=== PATIENT | male | born 1965 | race Caucasian/White ===

== ENCOUNTER 2016-10-31 10:09 | Emergency (ER) | payer SELFPAY ==
--- NOTE | 2016-10-31 10:59 | EDM.PDOC ---
ED HPI GENERAL MEDICAL PROBLEM - General Chief Complaint: Upper Extremity Injury/Pain Stated Complaint: RIGHT ARM PAIN Time Seen by Provider: 10/31/16 10:50 Source of Information: Reports: Patient History Limitations: Reports: No Limitations - History of Present Illness INITIAL COMMENTS - FREE TEXT/NARRATIVE: HISTORY AND PHYSICAL: History of present illness: [Patient comes to the emergency room complaining of right elbow pain. Has had stiffness to his right elbow for the past week. Over the past 48 hours his arm has become more painful and elbow has become warm and swollen. He has a history of gout though typically in his great toes. He reports that he's had episodes of this in the past and it always improves with steroids prescribed by his PCP in [place]. He denies fever and chills. He's had no chest pain shortness of breath or difficulty breathing. No abdominal pain. He's not been drinking more alcohol than usual and has had no change in his diet. He typically avoids red meats due to his history of gout. Patient's PCP is in [place]. ] Review of systems: As per history of present illness and below otherwise all systems reviewed and negative. Past medical history: As per history of present illness and as reviewed below otherwise noncontributory. Surgical history: As per history of present illness and as reviewed below otherwise noncontributory. Social history: No reported history of drug or alcohol abuse. Family history: As per history of present illness and as reviewed below otherwise noncontributory. Physical exam: HEENT: Atraumatic, normocephalic. Lungs: Clear to auscultation, breath sounds equal bilaterally. Heart: S1S2, regular rate and rhythm. Abdomen: Soft, nondistended, nontender. Pelvis: Stable nontender. Genitourinary: Deferred. Rectal: Deferred. Extremities: R elbow has increased warmth and swelling, particularly over the radial aspect. Mild tenderness with palpation. Neurovascular unremarkable. Neuro: Awake, alert, oriented. Motor and sensory unremarkable throughout. Exam nonfocal. Diagnostics: [CBC, CMP, uric acid, right elbow x-ray] Impression: [Right elbow pain] Plan: [Discussed with patient that his uric acid level is elevated which is likely the cause of his elbow pain. He is given a prescription for a tapering dose of prednisone. And a prescription for indomethacin to use for his next flareup until he can be seen by his PCP. He is in agreement with today's plan all his questions are answered and concerns were addressed.] Definitive disposition and diagnosis as appropriate pending reevaluation and review of above. right elbow Pain Score (Numeric/FACES): 8 - Related Data Allergies Allergy/AdvReac Type Severity Reaction Status Date / Time No Known Allergies Allergy Verified 10/31/16 10:14 Home Meds: Home Meds Indomethacin [Indocin] 25 mg PO DAILY PRN 10/31/16 [History] Metoprolol Succinate [Toprol XL] 25 mg PO DAILY 10/31/16 [History] metFORMIN [Glucophage XR] 500 mg PO BID 10/31/16 [History] Past Medical History Cardiovascular History: Reports: Hypertension Musculoskeletal History: Reports: Gout Endocrine/Metabolic History: Reports: Diabetes, Type II Oncologic (Cancer) History: Reports: Leukemia - Past Surgical History GI Surgical History: Reports: Cholecystectomy Musculoskeletal Surgical History: Reports: Knee Replacement Other Musculoskeletal Surgeries/Procedures:: elbow surgery Social & Family History - Family History Family Medical History: Noncontributory - Tobacco Use Smoking Status *Q: Current Every Day Smoker Years of Tobacco use: 15 Packs/Tins Daily: 0.5 - Caffeine Use Caffeine Use: Reports: Coffee - Alcohol Use Days Per Week of Alcohol Use: 2 Number of Drinks Per Day: 6 Total Drinks Per Week: 12 - Recreational Drug Use Recreational Drug Use: No Review of Systems - Review of Systems Review Of Systems: ROS reveals no pertinent complaints other than HPI. ED EXAM, GENERAL - Physical Exam Exam: See Below Course - Vital Signs Last Recorded V/S: Last Vital Signs Temp 97.6 F 10/31/16 10:15 Pulse 86 10/31/16 12:27 Resp 16 10/31/16 12:27 BP 139/85 10/31/16 12:27 Pulse Ox 94 L 10/31/16 12:27 - Orders/Labs/Meds Labs: Laboratory Tests 10/31/16 10/31/16 Range/Units 11:17 11:17 WBC 7.56 (4.0-11.0) K/uL RBC 4.84 (4.50-5.90) M/uL Hgb 14.2 (13.0-17.0) g/dL Hct 42.1 (38.0-50.0) % MCV 87.0 (80.0-98.0) fL MCH 29.3 (27.0-32.0) pg MCHC 33.7 (31.0-37.0) g/dL RDW Std Deviation 42.7 (28.0-62.0) fl RDW Coeff of Phyllis 14 (11.0-15.0) % Plt Count 264 (150-400) K/uL MPV 9.00 (7.40-12.00) fL Neut % (Auto) 74.2 (48.0-80.0) % Lymph % (Auto) 13.8 L (16.0-40.0) % [place] % (Auto) 7.5 (0.0-15.0) % Eos % (Auto) 3.8 (0.0-7.0) % Baso % (Auto) 0.7 (0.0-1.5) % Neut # (Auto) 5.6 (1.4-5.7) K/uL Lymph # (Auto) 1.0 (0.6-2.4) K/uL [place] # (Auto) 0.6 (0.0-0.8) K/uL Eos # (Auto) 0.3 (0.0-0.7) K/uL Baso # (Auto) 0.1 (0.0-0.1) K/uL Nucleated RBC % 0.0 /100WBC Nucleated RBCs # 0 K/uL Sodium 135 L (136-146) mmol/L Potassium 4.3 (3.5-5.1) mmol/L Chloride 98 (98-110) mmol/L Carbon Dioxide 26 (21-31) mmol/L BUN 11 (6.0-23.0) mg/dL Creatinine 0.9 (0.6-1.5) mg/dL Est Cr Clr Drug Dosing 108.98 mL/min Estimated GFR (MDRD) > 60.0 ml/min Glucose 170 H (60-110) mg/dL Uric Acid 8.9 H (2.1-7.4) mg/dL Calcium 9.4 (8.8-10.8) mg/dL Total Bilirubin 1.5 (0.1-1.5) mg/dL AST 18 (5-40) IU/L ALT 22 (8-54) IU/L Alkaline Phosphatase 122 (40-150) Total Protein 7.2 (6.0-8.0) g/dL Albumin 4.3 (3.5-5.0) g/dL Globulin 2.9 (2.0-3.5) g/dL Albumin/Globulin Ratio 1.5 (1.3-2.8) Departure - Departure Time of Disposition: 12:15 Disposition: Home, Self-Care 01 Condition: Good Clinical Impression: Gout Qualifiers: Gout site: elbow Gout etiology: unspecified cause Chronicity: acute Laterality : right Qualified Code(s): M10.9 - Gout, unspecified - Discharge Information Instructions: Gout, [id number] Referrals: PCP,None [Primary Care Provider] - Forms: ED Department Discharge Additional Instructions: The following information is given to patients seen in the emergency department who are being discharged to home. This information is to outline your options for follow-up care. We provide all patients seen in our emergency department with a follow-up referral. The need for follow-up, as well as the timing and circumstances, are variable depending upon the specifics of your emergency department visit. If you don't have a primary care physician on staff, we will provide you with a referral. We always advise you to contact your personal physician following an emergency department visit to inform them of the circumstance of the visit and for follow-up with them and/or the need for any referrals to a consulting specialist. The emergency department will also refer you to a specialist when appropriate. This referral assures that you have the opportunity for follow-up care with a specialist. All of these measure are taken in an effort to provide you with optimal care, which includes your follow-up. Under all circumstances we always encourage you to contact your private physician who remains a resource for coordinating your care. When calling for follow-up care, please make the office aware that this follow-up is from your recent emergency room visit. If for any reason you are refused follow-up, please contact the [facility] emergency department at and asked to speak to the emergency department charge nurse. [facility] [address] [place] [id number] Establish care with a local primary care provider if you are going to be in the local area. Follow-up with your PCP in the next 48-72 hours. Take prednisone with this episode. Refill prescription for indomethacin to have it on hand for next time. Return to ER as needed as discussed.
--- NOTE | 2016-10-31 11:19 | CR ---
EXAMINATION: Right elbow HISTORY: Pain, warmth COMPARISON: None TECHNIQUE: 2 views FINDINGS: There is no acute osseous abnormality, dislocation, or fracture. Bone mineralization appea rs normal. Moderate osteophyte and osteoarthritic changes are noted within the right elbow. There is a moderate triceps insertional enthesophyte. There is likely a small to moderate joint effusion. IMPRESSION: 1. Joint effusion and osteoarthritic changes noted without acute osseous abnormality.
[2016-10-31 11:51] LABS: CHLORIDE,CL 98 mmol/L (98-110); SODIUM,NA 135 mmol/L (136-146)
[2016-10-31 14:13] VITALS: BP 139/85
== END 2016-10-31 12:27 | disposition home or self-care (01) ==
LOC: MW.ED 10:09
DX: M10.9 Gout, unspecified (principal); I10 Essential (primary) hypertension; F17.210 Nicotine dependence, cigarettes, uncomplicated; E11.9 Type 2 diabetes mellitus without complications; Z79.84 Long term (current) use of oral hypoglycemic drugs; Z79.899 Other long term (current) drug therapy; Z90.49 Acquired absence of other specified parts of digestive tract; Z96.659 Presence of unspecified artificial knee joint
CPT/HCPCS: 36415; 73070-26-RT; 73070-RT; 80053; 84550; 85025; 99283

== ENCOUNTER 2016-11-21 12:17 | Observation (INO) | payer SELFPAY ==
--- NOTE | 2016-11-21 12:27 | EDM.PDOC ---
ED HPI GENERAL MEDICAL PROBLEM - General Stated Complaint: CHEST PAIN Time Seen by Provider: 11/21/16 12:35 Source of Information: Reports: Patient History Limitations: Reports: No Limitations - History of Present Illness INITIAL COMMENTS - FREE TEXT/NARRATIVE: History of present illness: []Patient's been having right-sided burning chest pain since 9:00 this morning. It started while he was at work he notes that he was in the emergency room about 2 weeks ago for elbow pain that was thought to be gout. Been taking ibuprofen daily for his elbow pain and he started coughing up blood. Review of systems: As per history of present illness and below otherwise all systems reviewed and negative. Past medical history: As per history of present illness and as reviewed below otherwise noncontributory. Surgical history: As per history of present illness and as reviewed below otherwise noncontributory. Social history: No reported history of drug or alcohol abuse. Family history: As per history of present illness and as reviewed below otherwise noncontributory. Physical exam: General: Well developed, well nourished in NAD HEENT: Atraumatic, normocephalic, pupils reactive, negative for conjunctival pallor or scleral icterus, mucous membranes moist, throat clear, neck supple, nontender, trachea midline. Lungs: Clear to auscultation, breath sounds equal bilaterally, chest nontender. Heart: S1S2, regular, negative for clicks, rubs, or JVD. Abdomen: Soft, nondistended, nontender. Negative for masses or hepatosplenomegaly. Negative for costovertebral tenderness. Pelvis: Stable nontender. Genitourinary: Deferred. Rectal: Deferred. Extremities: Atraumatic, negative for cords or calf pain. Neurovascular unremarkable. Neuro: Awake, alert, oriented. Cranial nerves II through XII unremarkable. Cerebellum unremarkable. Motor and sensory unremarkable throughout. Exam nonfocal. Diagnostics: []Labs and EKG x-rays were done which were negative. First troponin was 0.00. A second troponin was ordered after consultation with the hospitalist. Results came back normal at 0.10. Because this technically was an increase in troponin patient was admitted for observation for a third troponin. Therapeutics: []A dose of Protonix and nitroglycerin was given which alleviated his symptoms Impression: []Chest pain Plan: []Patient is admitted for observation chest pain is alleviated while in the ED Definitive disposition and diagnosis as appropriate pending reevaluation and review of above. chest Pain Score (Numeric/FACES): 7 Right Arm Pain Score (Numeric/FACES): 2 Right Elbow Pain Score (Numeric/FACES): 6 - Related Data Allergies Allergy/AdvReac Type Severity Reaction Status Date / Time No Known Allergies Allergy Verified 11/21/16 12:22 Home Meds: Home Meds Metoprolol Succinate [Toprol XL] 25 mg PO DAILY 10/31/16 [History] metFORMIN [Glucophage XR] 500 mg PO BID 10/31/16 [History] Past Medical History Cardiovascular History: Reports: Hypertension Musculoskeletal History: Reports: Gout Endocrine/Metabolic History: Reports: Diabetes, Type II Oncologic (Cancer) History: Reports: Leukemia - Past Surgical History GI Surgical History: Reports: Cholecystectomy Musculoskeletal Surgical History: Reports: Knee Replacement Other Musculoskeletal Surgeries/Procedures:: elbow surgery Social & Family History - Family History Family Medical History: Noncontributory - Tobacco Use Smoking Status *Q: Current Every Day Smoker Years of Tobacco use: 15 Packs/Tins Daily: 0.5 - Caffeine Use Caffeine Use: Reports: Coffee - Alcohol Use Days Per Week of Alcohol Use: 2 Number of Drinks Per Day: 6 Total Drinks Per Week: 12 - Recreational Drug Use Recreational Drug Use: No ED ROS GENERAL - Review of Systems Review Of Systems: See Below (See history of present illness) ED EXAM, GENERAL - Physical Exam Exam: See Below (See history of present illness) Course - Vital Signs Last Recorded V/S: Last Vital Signs Temp 35.8 C 11/22/16 04:00 Pulse 55 L 11/22/16 04:00 Resp 18 11/22/16 04:00 BP 138/75 11/22/16 04:00 Pulse Ox 98 11/22/16 04:00 - Orders/Labs/Meds Orders: Active Orders 24 hr Category Date Time Status Cardiac Monitoring [RC] . DIRECTED Care 11/21/16 12:27 Inactive EKG Documentation Completion [RC] STAT Care 11/21/16 12:27 Active Saline Lock Insert [OM.PC] Stat Oth 11/21/16 12:27 Ordered Medication Orders Acetaminophen (Tylenol) 650 mg PO Q4H PRN PRN Reason: Pain Last Admin: 11/21/16 18:16 Dose: 650 mg Aspirin (Aspirin) 81 mg PO DAILY [facility] Bisacodyl (Dulcolax) 5 mg PO DAILY PRN PRN Reason: Constipation Hydrochlorothiazide (Hydrochlorothiazide) 25 mg PO DAILY [facility] Lisinopril (Prinivil) 20 mg PO DAILY [facility] Metformin HCl (Glucophage Xr) 500 mg PO BID [facility] Last Admin: 11/21/16 20:07 Dose: 500 mg Metoprolol Succinate (Toprol Xl) 25 mg PO DAILY [facility] Morphine Sulfate (Morphine) 4 mg IVPUSH Q2H PRN PRN Reason: Pain Last Admin: 11/22/16 06:30 Dose: 4 mg Admin: 11/22/16 04:21 Dose: 4 mg Admin: 11/22/16 00:04 Dose: 4 mg Ondansetron HCl (Zofran Odt) 4 mg PO Q4H PRN PRN Reason: nausea, able to take PO Pantoprazole Sodium (Protonix) 40 mg PO BIDAC [facility] Last Admin: 11/22/16 06:30 Dose: 40 mg Admin: 11/21/16 20:07 Dose: 40 mg Sucralfate (Carafate) 1 gm PO Q6H [facility] Last Admin: 11/22/16 02:11 Dose: 1 gm Admin: 11/21/16 20:07 Dose: 1 gm Labs: Laboratory Tests 11/21/16 11/21/16 11/21/16 Range/Units 12:41 12:41 12:41 WBC 6.11 (4.0-11.0) K/uL RBC 4.54 (4.50-5.90) M/uL Hgb 13.6 (13.0-17.0) g/dL Hct 39.2 (38.0-50.0) % MCV 86.3 (80.0-98.0) fL MCH 30.0 (27.0-32.0) pg MCHC 34.7 (31.0-37.0) g/dL RDW Std Deviation 41.1 (28.0-62.0) fl RDW Coeff of Phyllis 13 (11.0-15.0) % Plt Count 256 (150-400) K/uL MPV 9.40 (7.40-12.00) fL Neut % (Auto) 73.1 (48.0-80.0) % Lymph % (Auto) 16.5 (16.0-40.0) % [place] % (Auto) 7.0 (0.0-15.0) % Eos % (Auto) 2.6 (0.0-7.0) % Baso % (Auto) 0.8 (0.0-1.5) % Neut # (Auto) 4.5 (1.4-5.7) K/uL Lymph # (Auto) 1.0 (0.6-2.4) K/uL [place] # (Auto) 0.4 (0.0-0.8) K/uL Eos # (Auto) 0.2 (0.0-0.7) K/uL Baso # (Auto) 0.1 (0.0-0.1) K/uL Nucleated RBC % 0.0 /100WBC Nucleated RBCs # 0 K/uL INR 0.99 (0.86-1.11) APTT 27.0 (18.6-31.3) SEC Sodium 137 (136-146) mmol/L Potassium 4.0 (3.5-5.1) mmol/L Chloride 101 (98-110) mmol/L Carbon Dioxide 26 (21-31) mmol/L BUN 11 (6.0-23.0) mg/dL Creatinine 0.9 (0.6-1.5) mg/dL Est Cr Clr Drug Dosing 109.13 mL/min Estimated GFR (MDRD) > 60.0 ml/min Glucose 271 H (60-110) mg/dL Calcium 9.3 (8.8-10.8) mg/dL Total Bilirubin 1.4 (0.1-1.5) mg/dL AST 19 (5-40) IU/L ALT 28 (8-54) IU/L Alkaline Phosphatase 117 (40-150) Troponin I (0.0-0.29) NG/ML Total Protein 6.8 (6.0-8.0) g/dL Albumin 4.1 (3.5-5.0) g/dL Globulin 2.7 (2.0-3.5) g/dL Albumin/Globulin Ratio 1.5 (1.3-2.8) Blood Type Antibody Screen 11/21/16 11/21/16 11/21/16 Range/Units 12:41 12:41 15:53 WBC (4.0-11.0) K/uL RBC (4.50-5.90) M/uL Hgb (13.0-17.0) g/dL Hct (38.0-50.0) % MCV (80.0-98.0) fL MCH (27.0-32.0) pg MCHC (31.0-37.0) g/dL RDW Std Deviation (28.0-62.0) fl RDW Coeff of Phyllis (11.0-15.0) % Plt Count (150-400) K/uL MPV (7.40-12.00) fL Neut % (Auto) (48.0-80.0) % Lymph % (Auto) (16.0-40.0) % [place] % (Auto) (0.0-15.0) % Eos % (Auto) (0.0-7.0) % Baso % (Auto) (0.0-1.5) % Neut # (Auto) (1.4-5.7) K/uL Lymph # (Auto) (0.6-2.4) K/uL [place] # (Auto) (0.0-0.8) K/uL Eos # (Auto) (0.0-0.7) K/uL Baso # (Auto) (0.0-0.1) K/uL Nucleated RBC % /100WBC Nucleated RBCs # K/uL INR (0.86-1.11) APTT (18.6-31.3) SEC Sodium (136-146) mmol/L Potassium (3.5-5.1) mmol/L Chloride (98-110) mmol/L Carbon Dioxide (21-31) mmol/L BUN (6.0-23.0) mg/dL Creatinine (0.6-1.5) mg/dL Est Cr Clr Drug Dosing mL/min Estimated GFR (MDRD) ml/min Glucose (60-110) mg/dL Calcium (8.8-10.8) mg/dL Total Bilirubin (0.1-1.5) mg/dL AST (5-40) IU/L ALT (8-54) IU/L Alkaline Phosphatase (40-150) Troponin I < 0.10 < 0.10 (0.0-0.29) NG/ML Total Protein (6.0-8.0) g/dL Albumin (3.5-5.0) g/dL Globulin (2.0-3.5) g/dL Albumin/Globulin Ratio (1.3-2.8) Blood Type O POSITIVE Antibody Screen NEGATIVE Meds: Medications Generic Name Dose Route Start Last Admin Trade Name Freq PRN Reason Stop Dose Admin Acetaminophen 650 mg 11/21/16 17:31 11/21/16 18:16 Tylenol PO 650 mg Q4H PRN Administration Pain Aspirin 81 mg 11/22/16 09:00 Aspirin PO DAILY [facility] Bisacodyl 5 mg 11/21/16 19:21 Dulcolax PO DAILY PRN Constipation Hydrochlorothiazide 25 mg 11/22/16 09:00 Hydrochlorothiazide PO DAILY [facility] Lisinopril 20 mg 11/22/16 09:00 Prinivil PO DAILY [facility] Metformin HCl 500 mg 11/21/16 21:00 11/21/16 20:07 Glucophage Xr PO 500 mg BID KRISTA Administration Metoprolol Succinate 25 mg 11/22/16 09:00 Toprol Xl PO DAILY [facility] Morphine Sulfate 4 mg 11/21/16 23:41 11/22/16 06:30 Morphine IVPUSH 4 mg Q2H PRN Administration Pain Ondansetron HCl 4 mg 11/21/16 19:21 Zofran Odt PO Q4H PRN nausea, able to take PO Pantoprazole Sodium 40 mg 11/21/16 19:30 11/22/16 06:30 Protonix PO 40 mg BIDAC KRISTA Administration Sucralfate 1 gm 11/21/16 20:00 11/22/16 02:11 Carafate PO 1 gm Q6H KRISTA Administration Discontinued Medications Generic Name Dose Route Start Last Admin Trade Name Freq PRN Reason Stop Dose Admin Aspirin 81 mg 11/22/16 08:00 Aspirin PO 11/22/16 09:00 DAILY ONE Hydrochlorothiazide 25 mg 11/21/16 19:18 11/21/16 20:07 Hydrochlorothiazide PO 11/21/16 19:19 25 mg ONETIME ONE Administration Lisinopril 20 mg 11/21/16 19:18 11/21/16 20:07 Prinivil PO 11/21/16 19:19 20 mg ONETIME ONE Administration Nitroglycerin 0.4 mg 11/21/16 12:53 11/21/16 13:12 Nitrostat SL 11/21/16 13:04 0.4 mg Q5M PRN Administration Chest Pain Pantoprazole Sodium 80 mg 11/21/16 12:53 11/21/16 13:01 Protonix Iv IVPUSH 11/21/16 12:54 80 mg .BOLUS ONE Administration Departure - Departure Time of Disposition: 16:25 Disposition: Refer to Observation Condition: Good Clinical Impression: Acute coronary syndrome - My Orders Last 24 Hours: My Active Orders 11/21/16 12:27 Cardiac Monitoring [RC] . DIRECTED EKG Documentation Completion [RC] STAT Saline Lock Insert [OM.PC] Stat - Assessment/Plan Last 24 Hours: My Active Orders 11/21/16 12:27 Cardiac Monitoring [RC] . DIRECTED EKG Documentation Completion [RC] STAT Saline Lock Insert [OM.PC] Stat
[2016-11-21] MEDS ORDERED: Pantoprazole 40 MG Vial IVPUSH ONE (12:53)
[2016-11-21] MEDS: Nitroglycerin 0.4 MG Tab.SL SL PRN ×3 (13:01→13:12)
--- NOTE | 2016-11-21 13:07 | CR ---
EXAMINATION: Portable chest radiograph. HISTORY: Shortness of breath. FINDINGS: The trachea is midline. The cardiomediastinal silhouette is within normal limits. No pulmonary infil trates, effusions or pneumothorax. Advanced osteoarthritic changes noted within the right shoulder. IMPRESSION: No acute cardiopulmonary process.
[2016-11-21 13:16] LABS: CHLORIDE,CL 101 mmol/L (98-110); SODIUM,NA 137 mmol/L (136-146)
[2016-11-21] MEDS ORDERED: Acetaminophen 325 MG Tab PO PRN (17:31)
--- NOTE | 2016-11-21 19:03 | PCM.HP ---
H&P History of Present Illness - General Date of Service: 11/21/16 Source of Information: Patient, Family, Provider - History of Present Illness Initial Comments - Free Text/Narative: He had a several hour history this am of right sided chest pressure with shortness of breath. He was seen in the ED where two troponins were in the normal range but the second level was increased compared to the first level. This am he vomited and had some blood in the vomit. He no longer feels nauseated. He states that his blood pressure was elevated when he was having chest pain. He drinks about 12 beers on the weekend. In the ED his blood pressure was elevated to greater than 180/115 mm Hg. chest Pain Score (Numeric/FACES): 7 - Related Data Allergies/Adverse Reactions: Allergies Allergy/AdvReac Type Severity Reaction Status Date / Time No Known Allergies Allergy Verified 11/21/16 12:22 Home Medications: Home Meds Metoprolol Succinate [Toprol XL] 25 mg PO DAILY 10/31/16 [History] metFORMIN [Glucophage XR] 500 mg PO BID 10/31/16 [History] Past Medical History Cardiovascular History: Reports: Hypertension. Denies: Afib, CAD, [place] Respiratory History: Reports: COPD Gastrointestinal History: Denies: Cirrhosis Genitourinary History: Denies: Chronic Renal Insuffiency Musculoskeletal History: Reports: Gout Neurological History: Denies: CVA Endocrine/Metabolic History: Reports: Diabetes, Type II Immunologic History: Denies: HIV Oncologic (Cancer) History: Reports: Leukemia (he states that his leukemia is in remission) - Infectious Disease History Infectious Disease History: Reports: Chicken Pox - Past Surgical History GI Surgical History: Reports: Cholecystectomy Musculoskeletal Surgical History: Reports: Knee Replacement Other Musculoskeletal Surgeries/Procedures:: elbow surgery Social & Family History - Family History Other Cardiac Family History: his brother suffered an IL while in his 40's - Tobacco Use Smoking Status *Q: Current Every Day Smoker Years of Tobacco use: 15 Packs/Tins Daily: 0.5 Used Tobacco, but Quit: Yes Month Tobacco Last Used: November - Caffeine Use Caffeine Use: Reports: Coffee - Alcohol Use Days Per Week of Alcohol Use: 2 Number of Drinks Per Day: 6 Total Drinks Per Week: 12 Date of Last Drink: 11/18/16 Time of Last Drink: 20:40 - Recreational Drug Use Recreational Drug Use: No H&P Review of Systems - Review of Systems: Review Of Systems: See Below General: Denies: Fever, Chills HEENT: Denies: Sore Throat Pulmonary: Reports: Shortness of Breath, Cough (chronic "smoker's " cough in the am's ) Cardiovascular: Reports: Chest Pain (right sided; now resolved) Gastrointestinal: Reports: Abdominal Pain (some mid upper abdominal pain. ). Denies: Hematemesis, Hematochezia Genitourinary: Denies: Dysuria, Hematuria Skin: Denies: Cyanosis Psychiatric: Denies: Confusion Exam - Exam Exam: See Below - Vital Signs Vital Signs: Last Vital Signs Temp 98.9 F 11/21/16 16:34 Pulse 66 11/21/16 16:34 Resp 18 11/21/16 16:34 BP 141/86 H 11/21/16 16:34 Pulse Ox 95 11/21/16 16:34 Weight: 124.511 kg - Exam General: Alert, Oriented, Cooperative HEENT: EOMI, Mucosa Moist & [place] Neck: Supple, Trachea Midline Lungs: Other (faint basilar wheezing) Cardiovascular: Regular Rate, Regular Rhythm Abdomen: Soft, Tenderness (mild epigastric tenderness). No: Distention Rectal (Males) Exam: Deferred Extremities: No: Edema Neurological: Cranial Nerves Intact, Normal Speech Neuro Extensive - Mental Status: Normal Mood/Affect, Normal Cognition Neuro Extensive - Motor, Sensory, Reflexes: CN II-XII Intact Psychiatric: No: Agitated, Hallucinations - Patient Data Lab Results Last 24 hrs: Laboratory Results - last 24 hr 11/21/16 Range/Units 18:21 POC Glucose 133 H (60-110) mg/dL Result Diagrams: 11/21/16 12:41 11/21/16 12:41 Matthew Results Last 24 hrs: CXR: WNL EKG: NSR *Q Meaningful Use (ADM) - VTE *Q VTE Criteria *Q: - Stroke *Q Stroke Criteria *Q: - AMI *Q AMI Criteria *Q: - Problem List (1) Chest pain SNOMED Code(s): 60415684 ICD Code: R07.9 - CHEST PAIN, UNSPECIFIED Status: Acute Current Visit: Yes (2) Hematemesis SNOMED Code(s): 9867872 ICD Code: K92.0 - HEMATEMESIS Status: Acute Current Visit: Yes (3) Hypertension SNOMED Code(s): 92786123 ICD Code: I10 - ESSENTIAL (PRIMARY) HYPERTENSION Status: Acute Current Visit: Yes (4) Epigastric abdominal pain SNOMED Code(s): 21355843 ICD Code: R10.13 - EPIGASTRIC PAIN Status: Acute Current Visit: Yes (5) Diabetes mellitus, type II SNOMED Code(s): 55611769 ICD Code: E11.9 - TYPE 2 DIABETES MELLITUS WITHOUT COMPLICATIONS Status: Acute Current Visit: Yes Problem List Initiated/Reviewed/Updated: Yes Orders Last 24hrs: Active Orders 24 hr Category Date Time Status Telemetry Monitoring [Cardiac Monitoring] [RC] . Care 11/21/16 17:32 Active DIRECTED [place] [employer] Diet [DIET] Diet 11/21/16 Dinner Active TROPONIN I [CHEM] Stat Lab 11/21/16 18:45 Received Acetaminophen [Tylenol] Med 11/21/16 17:31 Active 650 mg PO Q4H PRN Medication Orders Acetaminophen (Tylenol) 650 mg PO Q4H PRN PRN Reason: Pain Last Admin: 11/21/16 18:16 Dose: 650 mg Assessment/Plan Comment:: treat HTN check lipids in am arrange outpatient cardiac stress test anticipate discharge tomorrow
[2016-11-21] MEDS ORDERED: Hydrochlorothiazide 25 MG Tab PO ONE (19:18)
[2016-11-21] MEDS ORDERED: Lisinopril 10 MG Tab PO ONE (19:18)
[2016-11-21] MEDS ORDERED: Bisacodyl 5 MG Tab PO PRN (19:21)
[2016-11-21] MEDS ORDERED: Ondansetron 4 MG Tab.DIS PO PRN (19:21)
[2016-11-21] MEDS: Sucralfate Suspension 1 GM/10 ML Cup PO SCH (20:07)
[2016-11-21] MEDS: metFORMIN 500 MG Tab.ER PO SCH (20:07)
[2016-11-21] MEDS: Pantoprazole 40 MG Tab.CR PO SCH (20:07)
[2016-11-22] MEDS: Morphine 4 MG/ML Syringe IVPUSH PRN ×5 (00:04→12:49)
[2016-11-22] MEDS: Sucralfate Suspension 1 GM/10 ML Cup PO SCH ×3 (02:11→14:00)
[2016-11-22] MEDS: Pantoprazole 40 MG Tab.CR PO SCH (06:30)
[2016-11-22] MEDS ORDERED: Aspirin 81 MG Tab.Chew PO ONE (08:00)
[2016-11-22] MEDS ORDERED: Lisinopril 10 MG Tab PO SCH (09:00)
[2016-11-22] MEDS ORDERED: Aspirin 81 MG Tab.Chew PO SCH (09:00)
[2016-11-22] MEDS ORDERED: Metoprolol Succinate 25 MG Tab.ER PO SCH (09:00)
[2016-11-22] MEDS ORDERED: Hydrochlorothiazide 25 MG Tab PO SCH (09:00)
[2016-11-22] MEDS: metFORMIN 500 MG Tab.ER PO SCH (09:10)
[2016-11-22 11:50] VITALS: BP 133/76
[2016-11-22] MEDS ORDERED: Colchicine 0.6 MG Tab PO ONE (12:27)
--- NOTE | 2016-11-22 13:16 | PCM.DCSUM1 ---
Discharge Summary - Hospital Course Brief History: he was admitted for right sided chest pain. He was also noted to have severe hypertension of about 180/115 mm Hg. - Discharge Data Discharge Date: 11/22/16 Discharge Disposition: Home, Self-Care 01 Condition: Fair - Discharge Diagnosis/Problem(s) (1) Chest pain SNOMED Code(s): 47932661 ICD Code: R07.9 - CHEST PAIN, UNSPECIFIED Status: Acute Current Visit: Yes (2) Hematemesis SNOMED Code(s): 0270816 ICD Code: K92.0 - HEMATEMESIS Status: Acute Current Visit: Yes (3) Hypertension SNOMED Code(s): 18871040 ICD Code: I10 - ESSENTIAL (PRIMARY) HYPERTENSION Status: Acute Current Visit: Yes (4) Epigastric abdominal pain SNOMED Code(s): 35906577 ICD Code: R10.13 - EPIGASTRIC PAIN Status: Acute Current Visit: Yes (5) Diabetes mellitus, type II SNOMED Code(s): 73859669 ICD Code: E11.9 - TYPE 2 DIABETES MELLITUS WITHOUT COMPLICATIONS Status: Acute Current Visit: Yes - Patient Summary/Data Hospital Course: He was treated with lisinopril and HCTZ. his blood pressure normalized and he feels much better before discharge. Serial troponins were normal He reported that he sometimes drinks about 12 beers on the weekend. his triglyceride level was 400 mg/dl He reported and episode of hematemesis after using indocin at home for gout. He had slight epigastric tenderness that resolved after treating with protonix and carafate. He had swelling and pain at the right elbow thought to be a recurrent of his gout. Diagnosis: upper GI bleeding; likely secondary to gastritis elevated triglycerides DM II chest pain resolved acute gouty arthritis of the right [place] HTN improved. Plan: follow up with local primary care provider/I would recommend cardiac stress testing as an outpatient. Asa 81 mg daily I advised stopping alcohol as this might help his gout and hypertriglyceridemia ; he states that he can stop drinking alcohol colchicine 0.6 mg tid prn gout #10 with 6 refills protonix 40 mg daily x one month HCTZ 25 mg daily Lisinopril 20 mg daily Jon Khan MD - Discharge Plan Prescriptions/Med Rec: Aspirin 81 mg PO DAILY #100 tab.chew Colchicine 0.6 mg PO TID PRN #10 capsule PRN Reason: Other Hydrochlorothiazide 25 mg PO DAILY #30 tablet Lisinopril [Prinivil] 20 mg PO DAILY #30 tablet Pantoprazole [ProTONIX] 40 mg PO DAILY #30 tab.cr Home Medications: Home Meds metFORMIN [Glucophage XR] 1,000 mg PO BIDMEALS 10/31/16 [History] Albuterol [Proair HFA] 2 inh IH QID PRN 11/22/16 [History] Aspirin 81 mg PO DAILY #100 tab.chew 11/22/16 [Rx] Colchicine 0.6 mg PO TID PRN #10 capsule 11/22/16 [Rx] Hydrochlorothiazide 25 mg PO DAILY #30 tablet 11/22/16 [Rx] Lisinopril [Prinivil] 20 mg PO DAILY #30 tablet 11/22/16 [Rx] Pantoprazole [ProTONIX] 40 mg PO DAILY #30 tab.cr 11/22/16 [Rx] Patient Handouts: Chest Wall Pain, [id number] Referrals: PCP,None [Primary Care Provider] - - Patient Data Vitals - Most Recent: Last Vital Signs Temp 96.6 F 11/22/16 11:49 Pulse 61 11/22/16 11:49 Resp 20 11/22/16 11:49 BP 133/76 11/22/16 11:49 Pulse Ox 94 L 11/22/16 11:49 Weight - Most Recent: 124.511 kg I&O - Last 24 hours: Intake & Output 11/21/16 11/22/16 11/22/16 22:59 06:59 14:59 Intake Total 550 Balance 550 Lab Results - Last 24 hrs: Laboratory Results - last 24 hr 11/21/16 11/21/16 11/22/16 Range/Units 18:21 18:45 04:45 WBC (4.0-11.0) K/uL RBC (4.50-5.90) M/uL Hgb (13.0-17.0) g/dL Hct (38.0-50.0) % MCV (80.0-98.0) fL MCH (27.0-32.0) pg MCHC (31.0-37.0) g/dL RDW Std Deviation (28.0-62.0) fl RDW Coeff of Phyllis (11.0-15.0) % Plt Count (150-400) K/uL MPV (7.40-12.00) fL Neut % (Auto) (48.0-80.0) % Lymph % (Auto) (16.0-40.0) % Story % (Auto) (0.0-15.0) % Eos % (Auto) (0.0-7.0) % Baso % (Auto) (0.0-1.5) % Neut # (Auto) (1.4-5.7) K/uL Lymph # (Auto) (0.6-2.4) K/uL Story # (Auto) (0.0-0.8) K/uL Eos # (Auto) (0.0-0.7) K/uL Baso # (Auto) (0.0-0.1) K/uL Nucleated RBC % /100WBC Nucleated RBCs # K/uL POC Glucose 133 H (60-110) mg/dL Hemoglobin A1c (0.0-6.0) % Magnesium 1.7 (1.5-2.3) mEq/L Troponin I < 0.10 (0.0-0.29) NG/ML Triglycerides 409 H (10-190) mg/dL Cholesterol 207 (131-240) mg/dL HDL Cholesterol 30 L (40-80) mg/dL Cholesterol/HDL Ratio 6.9 H (3.3-6.0) 11/22/16 11/22/16 11/22/16 Range/Units 04:45 04:45 04:45 WBC 5.12 (4.0-11.0) K/uL RBC 4.72 (4.50-5.90) M/uL Hgb 14.2 (13.0-17.0) g/dL Hct 40.8 (38.0-50.0) % MCV 86.4 (80.0-98.0) fL MCH 30.1 (27.0-32.0) pg MCHC 34.8 (31.0-37.0) g/dL RDW Std Deviation 40.9 (28.0-62.0) fl RDW Coeff of Phyllis 13 (11.0-15.0) % Plt Count 254 (150-400) K/uL MPV 9.50 (7.40-12.00) fL Neut % (Auto) 60.6 (48.0-80.0) % Lymph % (Auto) 24.8 (16.0-40.0) % Story % (Auto) 6.8 (0.0-15.0) % Eos % (Auto) 6.4 (0.0-7.0) % Baso % (Auto) 1.4 (0.0-1.5) % Neut # (Auto) 3.1 (1.4-5.7) K/uL Lymph # (Auto) 1.3 (0.6-2.4) K/uL Story # (Auto) 0.4 (0.0-0.8) K/uL Eos # (Auto) 0.3 (0.0-0.7) K/uL Baso # (Auto) 0.1 (0.0-0.1) K/uL Nucleated RBC % 0.0 /100WBC Nucleated RBCs # 0 K/uL POC Glucose (60-110) mg/dL Hemoglobin A1c 7.0 H (0.0-6.0) % Magnesium (1.5-2.3) mEq/L Troponin I < 0.10 (0.0-0.29) NG/ML Triglycerides (10-190) mg/dL Cholesterol (131-240) mg/dL HDL Cholesterol (40-80) mg/dL Cholesterol/HDL Ratio (3.3-6.0) /18/17 Range/Units 05:59 WBC (4.0-11.0) K/uL RBC (4.50-5.90) M/uL Hgb (13.0-17.0) g/dL Hct (38.0-50.0) % MCV (80.0-98.0) fL MCH (27.0-32.0) pg MCHC (31.0-37.0) g/dL RDW Std Deviation (28.0-62.0) fl RDW Coeff of Phyllis (11.0-15.0) % Plt Count (150-400) K/uL MPV (7.40-12.00) fL Neut % (Auto) (48.0-80.0) % Lymph % (Auto) (16.0-40.0) % Story % (Auto) (0.0-15.0) % Eos % (Auto) (0.0-7.0) % Baso % (Auto) (0.0-1.5) % Neut # (Auto) (1.4-5.7) K/uL Lymph # (Auto) (0.6-2.4) K/uL Story # (Auto) (0.0-0.8) K/uL Eos # (Auto) (0.0-0.7) K/uL Baso # (Auto) (0.0-0.1) K/uL Nucleated RBC % /100WBC Nucleated RBCs # K/uL POC Glucose 138 H (60-110) mg/dL Hemoglobin A1c (0.0-6.0) % Magnesium (1.5-2.3) mEq/L Troponin I (0.0-0.29) NG/ML Triglycerides (10-190) mg/dL Cholesterol (131-240) mg/dL HDL Cholesterol (40-80) mg/dL Cholesterol/HDL Ratio (3.3-6.0) Med Orders - Current: Current Medications Acetaminophen (Tylenol) 650 mg PO Q4H PRN PRN Reason: Pain Last Admin: 11/21/16 18:16 Dose: 650 mg Aspirin (Aspirin) 81 mg PO DAILY [facility] Last Admin: 11/22/16 09:09 Dose: 81 mg Bisacodyl (Dulcolax) 5 mg PO DAILY PRN PRN Reason: Constipation Hydrochlorothiazide (Hydrochlorothiazide) 25 mg PO DAILY [facility] Last Admin: 11/22/16 09:11 Dose: 25 mg Lisinopril (Prinivil) 20 mg PO DAILY [facility] Last Admin: 11/22/16 09:11 Dose: 20 mg Metformin HCl (Glucophage Xr) 1,000 mg PO BIDMEALS [facility] Morphine Sulfate (Morphine) 4 mg IVPUSH Q2H PRN PRN Reason: Pain Last Admin: 11/22/16 12:49 Dose: 4 mg Ondansetron HCl (Zofran Odt) 4 mg PO Q4H PRN PRN Reason: nausea, able to take PO Pantoprazole Sodium (Protonix) 40 mg PO BIDAC [facility] Last Admin: 11/22/16 06:30 Dose: 40 mg Sucralfate (Carafate) 1 gm PO Q6H [facility] Last Admin: 11/22/16 09:09 Dose: 1 gm Discontinued Medications Aspirin (Aspirin) 81 mg PO DAILY ONE Stop: 11/22/16 09:00 Colchicine (Colcrys) 0.6 mg PO ONETIME ONE Stop: 11/22/16 12:28 Last Admin: 11/22/16 12:43 Dose: 0.6 mg Hydrochlorothiazide (Hydrochlorothiazide) 25 mg PO ONETIME ONE Stop: 11/21/16 19:19 Last Admin: 11/21/16 20:07 Dose: 25 mg Lisinopril (Prinivil) 20 mg PO ONETIME ONE Stop: 11/21/16 19:19 Last Admin: 11/21/16 20:07 Dose: 20 mg Metformin HCl (Glucophage Xr) 500 mg PO BID [facility] Last Admin: 11/22/16 09:10 Dose: 500 mg Metoprolol Succinate (Toprol Xl) 25 mg PO DAILY [facility] Last Admin: 11/22/16 09:10 Dose: 25 mg Nitroglycerin (Nitrostat) 0.4 mg SL Q5M PRN PRN Reason: Chest Pain Stop: 11/21/16 13:04 Last Admin: 11/21/16 13:12 Dose: 0.4 mg Pantoprazole Sodium (Protonix Iv) 80 mg IVPUSH .BOLUS ONE Stop: 11/21/16 12:54 Last Admin: 11/21/16 13:01 Dose: 80 mg *Q Meaningful Use (DIS) - VTE *Q VTE Criteria *Q: - Stroke *Q Stroke Criteria *Q: - AMI *Q AMI Criteria *Q:
--- NOTE | 2016-11-22 13:46 | PCM.SN ---
- Free Text/Narrative Note: added to the discharge meds tramadol 50 mg 1-2 po q 4 hour prn pain #10 with 1 refill; he is advised that it may cause drowsiness constipation and be habit forming. Do not operate dangerous equipment while taking it. Jon Khan MD
[2016-11-22] MEDS ORDERED: metFORMIN 500 MG Tab.ER PO SCH (17:00)
[2016-11-23] MEDS ORDERED: Losartan 50 MG Tab PO SCH (09:00)
== END 2016-11-22 14:45 | disposition home or self-care (01) ==
LOC: MW.ED 12:17 → MW.MS 16:24
PROVIDERS: ADMIT Family Medicine; ATTEND Family Medicine
DX: R07.9 Chest pain, unspecified (principal); K92.0 Hematemesis; I10 Essential (primary) hypertension; R10.13 Epigastric pain; E11.9 Type 2 diabetes mellitus without complications; Z79.82 Long term (current) use of aspirin; Z79.899 Other long term (current) drug therapy
CPT/HCPCS: 36415; 71010; 80053; 80061; 82962; 83036; 83735; 84484; 85025; 85610; 85730; 86850; 86900; 86901; 93005; 96374; 96375; 96376; 99285; A9270; C9113; G0378; J2270

== ENCOUNTER 2017-02-13 07:46 | Emergency (ER) | payer SELFPAY ==
[2017-02-13] MEDS ORDERED: Sodium Chloride 0.9% 2.5 ML Syringe FLUSH PRN (08:09)
[2017-02-13] MEDS ORDERED: Sodium Chloride 0.9% 10 ML Syringe FLUSH PRN (08:09)
[2017-02-13] MEDS ORDERED: Ketorolac 30 MG/ML SDV IVPUSH ONE (08:10)
[2017-02-13] MEDS ORDERED: Ondansetron 4 MG/2 ML SDV IVPUSH ONE (08:10)
[2017-02-13] MEDS ORDERED: Sodium Chloride 0.9% 500 ML IV SCH (08:15)
--- NOTE | 2017-02-13 08:16 | EDM.PDOC ---
ED HPI GENERAL MEDICAL PROBLEM - General Chief Complaint: Chest Pain Stated Complaint: PAIN IN UPPER RIGHT ABDOMINAL AREA Time Seen by Provider: 02/13/17 08:01 - History of Present Illness INITIAL COMMENTS - FREE TEXT/NARRATIVE: HISTORY AND PHYSICAL: History of present illness: The patient is a 51-year-old male with a history of ytp-rdkwbss-lnqkmyokl diabetes hypertension elevated triglycerides who presents with complaints of right upper abdominal right lower chest pain that started on Monday, 2 days ago. The patient had an admission here November 21 for right-sided chest pain and on that admission had elevated blood pressure and acute gouty attack and acute gastritis. Patient says that he followed up in [place] with a provider and his medications for blood pressure were adjusted but no other testing was performed. The patient says he had his gallbladder removed about a year ago for dysfunction not stones. The patient tells me that starting Monday he's been having bloating after taking just a few sips of water or a few bites of food, intermittent nausea but no vomiting and no diarrhea. He's had normal stools without black or bloody stools. He's had no cough runny nose sore throat or fever. He describes the pain as sharp underneath his right ribs and it migrates to his right flank. He says it is worse with movements and deep breaths. He has no diffuse abdominal pain and the pain does not radiate to the remainder of the abdomen. Patient has not taken anything specifically for the pain. Patient says that all foods that he eats even water is making him feel bloated and have the discomfort. He has no leg pain or swelling. The patient denies any recent trauma or strenuous activity. He denies any upper respiratory symptoms. He tells me he does drink but not daily. Patient does tell me that when the pain started on Monday it seemed to be very acute and sudden in onset. Since that time it has waxed and waned in intensity but has been constant Patient tells nursing that he has a history of leukemia 2013 which was treated and he is in remission. Review of systems: As per history of present illness and below otherwise all systems reviewed and negative. Past medical history: As per history of present illness and as reviewed below otherwise noncontributory. Surgical history: As per history of present illness and as reviewed below otherwise noncontributory. Social history: No reported history of drug or alcohol abuse. Family history: As per history of present illness and as reviewed below otherwise noncontributory. Physical exam: Gen.: Well-developed well-nourished man who is nontoxic and overweight. Vital signs have been reviewed by me HEENT: Atraumatic, normocephalic, pupils reactive, negative for conjunctival pallor or scleral icterus, mucous membranes moist, throat clear, neck supple, nontender, trachea midline. Lungs: Clear to auscultation, breath sounds equal bilaterally, chest with reproducible chest wall tenderness on the right ribs in the lower region extending around to the back without defects deformities or crepitus Heart: S1S2, regular, negative for clicks, rubs, or JVD. Abdomen: Soft, nondistended, hypoactive bowel sounds and there is some tympany on percussion in the upper abdomen. Patient has tenderness in the right upper quadrant region which he says reproduces the pain and there is no midline abdominal pain or lower abdominal pain. There is no rebound or guarding. Negative for masses or hepatosplenomegaly. Negative for costovertebral tenderness. Pelvis: Stable nontender. Genitourinary: Deferred. Rectal: Deferred. Extremities: Atraumatic, negative for cords or calf pain. Neurovascular unremarkable. No pedal edema or leg asymmetry Neuro: Awake, alert, oriented. Cranial nerves II through XII unremarkable. Cerebellum unremarkable. Motor and sensory unremarkable throughout. Exam nonfocal. Skin: Normal turgor no evidence of any rashes or lesions and no diaphoresis Diagnostics: EKG CBC CMP amylase lipase UA CTA of the chest CT scan of the abdomen and pelvis Therapeutics: IV O2 monitor IV fluids Toradol Zofran Patient is aware of all testing results and care plan for discharge home. Patient was informed of the enlarged spleen as well as the bilateral shoulder arthritis. He states that his provider is in [place] where he lives and have advised that he contact her and get follow-up for his mildly elevated blood sugar. I've also advised him to watch his diet a little bit better any more healthy foods. I advised ice or heat to area for discomfort. Patient is comfortable with discharge home. I will give him a prescription for some tramadol that he continues along with [id number] ibuprofen or Tylenol. Impression: Right abdominal/chest wall pain strain stable, mild hyperglycemia with history of diabetes stable Definitive disposition and diagnosis as appropriate pending reevaluation and review of above. Under R Ribs Pain Score (Numeric/FACES): 6 - Related Data Allergies Allergy/AdvReac Type Severity Reaction Status Date / Time No Known Allergies Allergy Verified 02/13/17 07:57 Home Meds: Home Meds metFORMIN [Glucophage XR] 1,000 mg PO DAILY 10/31/16 [History] Albuterol [Proair HFA] 2 inh IH QID PRN 11/22/16 [History] Aspirin 81 mg PO DAILY #100 tab.chew 11/22/16 [Rx] Colchicine 0.6 mg PO TID PRN #10 capsule 11/22/16 [Rx] Budesonide/Formoterol Fumarate [Symbicort 160-4.5 Mcg Inhaler] 1 puff INH DAILY 02/13/17 [History] Losartan [Cozaar] 50 mg PO DAILY 02/13/17 [History] Past Medical History Cardiovascular History: Reports: Hypertension Respiratory History: Reports: COPD Musculoskeletal History: Reports: Gout Endocrine/Metabolic History: Reports: Diabetes, Type II Oncologic (Cancer) History: Reports: Leukemia - Infectious Disease History Infectious Disease History: Reports: Chicken Pox - Past Surgical History GI Surgical History: Reports: Cholecystectomy Musculoskeletal Surgical History: Reports: Knee Replacement Other Musculoskeletal Surgeries/Procedures:: elbow surgery Social & Family History - Family History Family Medical History: Noncontributory Other Cardiac Family History: his brother suffered an [place] while in his 40's Endocrine/Metabolic: Reports: Diabetes, Type I - Tobacco Use Smoking Status *Q: Current Every Day Smoker Years of Tobacco use: 10 Packs/Tins Daily: 0.5 Used Tobacco, but Quit: Yes Month Tobacco Last Used: November - Caffeine Use Caffeine Use: Reports: Coffee - Alcohol Use Days Per Week of Alcohol Use: 1 Number of Drinks Per Day: 6 Total Drinks Per Week: 6 - Recreational Drug Use Recreational Drug Use: No ED ROS GENERAL - Review of Systems Review Of Systems: ROS reveals no pertinent complaints other than HPI. ED EXAM, GENERAL - Physical Exam Exam: See Below (See dictation) Course - Vital Signs Last Recorded V/S: Last Vital Signs Temp 36.5 C 02/13/17 07:54 Pulse 83 02/13/17 10:01 Resp 16 02/13/17 10:01 BP 181/108 H 02/13/17 10:01 Pulse Ox 97 02/13/17 10:01 - Orders/Labs/Meds Orders: Active Orders 24 hr Category Date Time Status Cardiac Monitoring [RC] . DIRECTED Care 02/13/17 08:09 Active EKG Documentation Completion [RC] STAT Care 02/13/17 08:09 Active Oxygen Therapy, ED [RC] ASDIRECTED Care 02/13/17 08:09 Active Pulse Oximetry [RC] ASDIRECTED Care 02/13/17 08:09 Active Sodium Chloride 0.9% [Normal Saline] 500 ml Med 02/13/17 08:15 Active IV STAT Sodium Chloride 0.9% [Saline Flush] Med 02/13/17 08:09 Active 10 ml FLUSH ASDIRECTED PRN Sodium Chloride 0.9% [Saline Flush] Med 02/13/17 08:09 Active 2.5 ml FLUSH ASDIRECTED PRN Saline Lock Insert [OM.PC] Stat Oth 02/13/17 08:09 Ordered Medication Orders Sodium Chloride (Normal Saline) 500 mls @ 999 mls/hr IV STAT KRISTA Last Admin: 02/13/17 08:52 Dose: 999 mls/hr Sodium Chloride (Saline Flush) 10 ml FLUSH ASDIRECTED PRN PRN Reason: Keep Vein Open Sodium Chloride (Saline Flush) 2.5 ml FLUSH ASDIRECTED PRN PRN Reason: Keep Vein Open Labs: Laboratory Tests 02/13/17 02/13/17 02/13/17 Range/Units 08:42 08:42 09:26 WBC 4.48 (4.0-11.0) K/uL RBC 4.75 (4.50-5.90) M/uL Hgb 14.5 (13.0-17.0) g/dL Hct 41.9 (38.0-50.0) % MCV 88.2 (80.0-98.0) fL MCH 30.5 (27.0-32.0) pg MCHC 34.6 (31.0-37.0) g/dL RDW Std Deviation 42.4 (28.0-62.0) fl RDW Coeff of Phyllis 13 (11.0-15.0) % Plt Count 210 (150-400) K/uL MPV 9.70 (7.40-12.00) fL Neut % (Auto) 60.5 (48.0-80.0) % Lymph % (Auto) 22.3 (16.0-40.0) % [place] % (Auto) 8.3 (0.0-15.0) % Eos % (Auto) 7.8 H (0.0-7.0) % Baso % (Auto) 1.1 (0.0-1.5) % Neut # (Auto) 2.7 (1.4-5.7) K/uL Lymph # (Auto) 1.0 (0.6-2.4) K/uL [place] # (Auto) 0.4 (0.0-0.8) K/uL Eos # (Auto) 0.4 (0.0-0.7) K/uL Baso # (Auto) 0.1 (0.0-0.1) K/uL Nucleated RBC % 0.0 /100WBC Nucleated RBCs # 0 K/uL Sodium 137 (136-146) mmol/L Potassium 4.0 (3.5-5.1) mmol/L Chloride 100 (98-110) mmol/L Carbon Dioxide 26 (21-31) mmol/L BUN 13 (6.0-23.0) mg/dL Creatinine 1.0 (0.6-1.5) mg/dL Est Cr Clr Drug Dosing 98.08 mL/min Estimated GFR (MDRD) > 60.0 ml/min Glucose 323 H (60-110) mg/dL Calcium 9.5 (8.8-10.8) mg/dL Total Bilirubin 1.7 H (0.1-1.5) mg/dL AST 19 (5-40) IU/L ALT 30 (8-54) IU/L Alkaline Phosphatase 99 (40-150) Total Protein 6.8 (6.0-8.0) g/dL Albumin 3.8 (3.5-5.0) g/dL Globulin 3.0 (2.0-3.5) g/dL Albumin/Globulin Ratio 1.3 (1.3-2.8) Amylase 59 (10-90) U/L Lipase 79 (7-80) U/L Urine Color YELLOW Urine Appearance CLEAR Urine pH 5.0 (5.0-8.0) Ur Specific [place] 1.020 (1.001-1.035) Urine Protein NEGATIVE (NEGATIVE) mg/dL Urine Glucose (UA) >=1000 (NEGATIVE) mg/dL Urine Ketones NEGATIVE (NEGATIVE) mg/dL Urine Occult Blood NEGATIVE (NEGATIVE) Urine Nitrite NEGATIVE (NEGATIVE) Urine Bilirubin NEGATIVE (NEGATIVE) Urine Urobilinogen 0.2 (<2.0) EU/dL Ur Leukocyte Esterase NEGATIVE (NEGATIVE) Urine RBC 0-1 (0-2/HPF) Urine WBC 0-1 (0-5/HPF) Ur Epithelial Cells RARE (NONE-FEW) Urine Bacteria RARE (NEGATIVE) Meds: Medications Generic Name Dose Route Start Last Admin Trade Name Freq PRN Reason Stop Dose Admin Sodium Chloride 500 mls @ 999 mls/hr 02/13/17 08:15 02/13/17 08:52 Normal Saline IV 999 mls/hr STAT KRISTA Administration Sodium Chloride 10 ml 02/13/17 08:09 Saline Flush FLUSH ASDIRECTED PRN Keep Vein Open Sodium Chloride 2.5 ml 02/13/17 08:09 Saline Flush FLUSH ASDIRECTED PRN Keep Vein Open Discontinued Medications Generic Name Dose Route Start Last Admin Trade Name Freq PRN Reason Stop Dose Admin Iopamidol 100 ml 02/13/17 09:44 02/13/17 09:44 Isovue Multipack-370 (76%) IVPUSH 02/13/17 09:45 100 ml ONETIME STA Administration Ketorolac Tromethamine 30 mg 02/13/17 08:10 02/13/17 08:57 Toradol IVPUSH 02/13/17 08:11 30 mg ONETIME ONE Administration Ondansetron HCl 4 mg 02/13/17 08:10 02/13/17 08:52 Zofran IVPUSH 02/13/17 08:11 4 mg ONETIME ONE Administration Departure - Departure Time of Disposition: 10:33 Disposition: Home, Self-Care 01 Condition: Good Clinical Impression: Right sided abdominal pain, Right-sided chest wall pain - Discharge Information Referrals: Leslie Curry MD [Primary Care Provider] - Forms: ED Department Discharge Additional Instructions: The following information is given to patients seen in the emergency department who are being discharged to home. This information is to outline your options for follow-up care. We provide all patients seen in our emergency department with a follow-up referral. The need for follow-up, as well as the timing and circumstances, are variable depending upon the specifics of your emergency department visit. If you don't have a primary care physician on staff, we will provide you with a referral. We always advise you to contact your personal physician following an emergency department visit to inform them of the circumstance of the visit and for follow-up with them and/or the need for any referrals to a consulting specialist. The emergency department will also refer you to a specialist when appropriate. This referral assures that you have the opportunity for followup care with a specialist. All of these measure are taken in an effort to provide you with optimal care, which includes your followup. Under all circumstances we always encourage you to contact your private physician who remains a resource for coordinating your care. When calling for followup care, please make the office aware that this follow-up is from your recent emergency room visit. If for any reason you are refused follow-up, please contact the [facility] emergency department at and ask to speak to the emergency department charge nurse. [facility] Primary care- [place] [address] Please contact your provider in [place] for further care and evaluation or connect with one of our clinic providers this week. Use [id number] Tylenol or ibuprofen for pain and use the tramadol as needed sleep. Please apply heat or ice to areas for comfort. Return to ER as needed and as discussed. Please try to watch her diet and start monitoring her blood sugar more frequently so that you can provide this information for your provider. - My Orders Last 24 Hours: My Active Orders 02/13/17 08:09 Cardiac Monitoring [RC] . DIRECTED EKG Documentation Completion [RC] STAT Oxygen Therapy, ED [RC] ASDIRECTED Pulse Oximetry [RC] ASDIRECTED Sodium Chloride 0.9% [Saline Flush] 10 ml FLUSH ASDIRECTED PRN Sodium Chloride 0.9% [Saline Flush] 2.5 ml FLUSH ASDIRECTED PRN Saline Lock Insert [OM.PC] Stat 02/13/17 08:15 Sodium Chloride 0.9% [Normal Saline] 500 ml IV STAT - Assessment/Plan Last 24 Hours: My Active Orders 02/13/17 08:09 Cardiac Monitoring [RC] . DIRECTED EKG Documentation Completion [RC] STAT Oxygen Therapy, ED [RC] ASDIRECTED Pulse Oximetry [RC] ASDIRECTED Sodium Chloride 0.9% [Saline Flush] 10 ml FLUSH ASDIRECTED PRN Sodium Chloride 0.9% [Saline Flush] 2.5 ml FLUSH ASDIRECTED PRN Saline Lock Insert [OM.PC] Stat 02/13/17 08:15 Sodium Chloride 0.9% [Normal Saline] 500 ml IV STAT
[2017-02-13 09:19] LABS: CHLORIDE,CL 100 mmol/L (98-110); SODIUM,NA 137 mmol/L (136-146)
[2017-02-13] MEDS ORDERED: Iopamidol 755 MG/ML 500 ML Multipack Bottle IVPUSH STA (09:44)
--- NOTE | 2017-02-13 10:05 | CT ---
EXAMINATION: CTA chest HISTORY: Pain COMPARISON: X-ray dated 11/21/2016 TECHNIQUE: Axial CT images obtained through the chest following the administration of 100 mL of Isovu e-370 left antecubital fossa. Coronal and sagittal reconstructions obtained. FINDINGS: The lungs are clear without focal consolidation. No pleural effusion or pneumothorax. The heart is normal in size without a pericardial effusion. No mediastinal lymphadenopathy. Mildly promin ent hilar and axillary lymph nodes noted. Thoracic aorta is normal in caliber. Main and central pulmo nary arteries are patent without evidence of a pulmonary embolism. Calcified granuloma in the left up per lobe anteriorly. The central airways are clear. Visualized images of the upper abdomen appear grossly unremarkable. Advanced osteoarthritic changes and subchondral cystic change noted within the right glenohumeral kaveh nt and moderately within the left glenohumeral joint. No suspicious osseous abnormalities identified. IMPRESSION: 1. No acute cardiopulmonary findings. 2. Advanced right and moderate left glenohumeral osteoarthritic changes.
--- NOTE | 2017-02-13 10:09 | CT ---
CT of the abdomen and pelvis with contrast. HISTORY: Pain TECHNIQUE: Axial CT images were obtained of the abdomen and pelvis following administration of 100 mL of Isovue-370 in the left antecubital fossa without complication. Coronal and sagittal reconstructio ns obtained. FINDINGS: The liver, adrenal glands, and pancreas appear normal. Cholecystectomy clips are noted. The spleen is enlarged measuring 17.6 x 2.2 cm. There is no bulky retroperitoneal lymphadenopathy or abdominal asc ites. There is however borderline periaortic lymph node measuring 1 cm in the short axis. The kidneys enhance and function symmetrically without evidence of obstructive uropathy. The large and small bowel are normal in caliber without evidence of obstruction. No focal pericolonic inflammation or stranding. The appendix is normal. 3 pelvic fluid. The urinary bladder is normal. Ti ny fat-containing bilateral inguinal hernias. No bulky pelvic lymphadenopathy. No suspicious osseous abnormalities identified. Chronic appearing spondylolysis bilaterally at L5 wit h grade 1 anterolisthesis. Chronic bilateral spondylolysis also noted at L2 without spondylolisthesis . IMPRESSION: 1. No acute findings within the abdomen or pelvis. 2. Splenomegaly. 3. Cholecystectomy.
[2017-02-13 10:59] VITALS: BP 141/96
== END 2017-02-13 10:50 | disposition home or self-care (01) ==
LOC: MW.ED 07:46
DX: R10.11 Right upper quadrant pain (principal); R07.89 Other chest pain; I10 Essential (primary) hypertension; E11.9 Type 2 diabetes mellitus without complications; F17.210 Nicotine dependence, cigarettes, uncomplicated
CPT/HCPCS: 36415; 71275; 74177; 80053; 81001; 82150; 83690; 85025; 93005; 96361; 96374; 96375; 99284; J1885; J2405; J7040; Q9967

== ENCOUNTER 2017-10-12 08:12 | Emergency (ER) | payer SELFPAY ==
--- NOTE | 2017-10-12 08:36 | EDM.PDOC ---
ED HPI GENERAL MEDICAL PROBLEM - General Chief Complaint: Upper Extremity Injury/Pain Stated Complaint: RT HAND SWOLLEN Time Seen by Provider: 10/12/17 08:33 Source of Information: Reports: Patient - History of Present Illness INITIAL COMMENTS - FREE TEXT/NARRATIVE: HISTORY AND PHYSICAL: History of present illness: [Patient with history of gout presents with hand pain and swelling 5 out of 10 nonradiating is taking: Jerry 3 tabs a couple of days ago and has taken a few Indocin tablets but has ran out No fever nausea vomiting chills sweats] Review of systems: As per history of present illness and below otherwise all systems reviewed and negative. Past medical history: As per history of present illness and as reviewed below otherwise noncontributory. Surgical history: As per history of present illness and as reviewed below otherwise noncontributory. Social history: No reported history of drug or alcohol abuse. Family history: As per history of present illness and as reviewed below otherwise noncontributory. Physical exam: HEENT: Atraumatic, normocephalic, pupils reactive, negative for conjunctival pallor or scleral icterus, mucous membranes moist, throat clear, neck supple, nontender, trachea midline. Lungs: Clear to auscultation, breath sounds equal bilaterally, chest nontender. Heart: S1S2, regular, negative for clicks, rubs, or JVD. Abdomen: Soft, nondistended, nontender. Negative for masses or hepatosplenomegaly. Negative for costovertebral tenderness. Pelvis: Stable nontender. Genitourinary: Deferred. Rectal: Deferred. Extremities: Atraumatic, negative for cords or calf pain. Neurovascular unremarkable. Right upper extremity unaffected above the wrist, slight discomfort in the wrist and distal metacarpals some minor swelling and warmth over the dorsum of the hand patient denies injury no open lesion or abscess entire limb neurovascularly intact elbow and shoulder unaffected Neuro: Awake, alert, oriented. Cranial nerves II through XII unremarkable. Cerebellum unremarkable. Motor and sensory unremarkable throughout. Exam nonfocal. Diagnostics: [CBC uric acid X-ray]Right wrist 3 views Therapeutics: [Indocin 50 mg 3 times a day when necessary #30 no refill gout diet ] Impression: [ acute gout ] Definitive disposition and diagnosis as appropriate pending reevaluation and review of above. Right hand/fa Pain Score (Numeric/FACES): 6 - Related Data Allergies Allergy/AdvReac Type Severity Reaction Status Date / Time No Known Allergies Allergy Verified 10/12/17 08:35 Home Meds: Home Meds metFORMIN [Glucophage XR] 1,000 mg PO DAILY 10/31/16 [History] Budesonide/Formoterol Fumarate [Symbicort 160-4.5 Mcg Inhaler] 1 puff INH DAILY 02/13/17 [History] Colchicine 0.6 mg PO DAILY PRN 10/12/17 [History] Losartan [Cozaar] 50 mg PO DAILY 10/12/17 [History] Past Medical History Cardiovascular History: Reports: Hypertension Respiratory History: Reports: COPD Musculoskeletal History: Reports: Gout Endocrine/Metabolic History: Reports: Diabetes, Type II, Other (See Below) Other Endocrine/Metabolic History: bursitis removed from feet and elbows Oncologic (Cancer) History: Reports: Leukemia - Infectious Disease History Infectious Disease History: Reports: Chicken Pox - Past Surgical History GI Surgical History: Reports: Cholecystectomy Musculoskeletal Surgical History: Reports: Knee Replacement Other Musculoskeletal Surgeries/Procedures:: elbow surgery Social & Family History - Family History Family Medical History: Noncontributory Other Cardiac Family History: his brother suffered an [place] while in his 40's Endocrine/Metabolic: Reports: Diabetes, Type I - Tobacco Use Smoking Status *Q: Current Every Day Smoker Years of Tobacco use: 15 Packs/Tins Daily: 0.5 - Caffeine Use Caffeine Use: Reports: Soda - Alcohol Use Days Per Week of Alcohol Use: 1 Number of Drinks Per Day: 6 Total Drinks Per Week: 6 - Recreational Drug Use Recreational Drug Use: No Review of Systems - Review of Systems Review Of Systems: See Below ED EXAM, GENERAL - Physical Exam Exam: See Below Course - Vital Signs Last Recorded V/S: Last Vital Signs Temp 97.4 F 10/12/17 08:18 Pulse 96 10/12/17 08:18 Resp 18 10/12/17 08:18 BP 177/93 H 10/12/17 08:18 Pulse Ox 97 10/12/17 08:18 - Orders/Labs/Meds Orders: Active Orders 24 hr Category Date Time Status Hand Comp Min 3V Rt [CR] Stat Exams 10/12/17 08:54 Taken Labs: Laboratory Tests 10/12/17 10/12/17 Range/Units 08:35 08:35 WBC 5.59 (4.0-11.0) K/uL RBC 4.91 (4.50-5.90) M/uL Hgb 15.2 (13.0-17.0) g/dL Hct 42.9 (38.0-50.0) % MCV 87.4 (80.0-98.0) fL MCH 31.0 (27.0-32.0) pg MCHC 35.4 (31.0-37.0) g/dL RDW Std Deviation 41.6 (28.0-62.0) fl RDW Coeff of Phyllis 13 (11.0-15.0) % Plt Count 256 (150-400) K/uL MPV 9.20 (7.40-12.00) fL Neut % (Auto) 59.9 (48.0-80.0) % Lymph % (Auto) 21.5 (16.0-40.0) % [place] % (Auto) 9.1 (0.0-15.0) % Eos % (Auto) 8.2 H (0.0-7.0) % Baso % (Auto) 1.3 (0.0-1.5) % Neut # (Auto) 3.4 (1.4-5.7) K/uL Lymph # (Auto) 1.2 (0.6-2.4) K/uL [place]corn # (Auto) 0.5 (0.0-0.8) K/uL Eos # (Auto) 0.5 (0.0-0.7) K/uL Baso # (Auto) 0.1 (0.0-0.1) K/uL Nucleated RBC % 0.0 /100WBC Nucleated RBCs # 0 K/uL Uric Acid 8.1 H (2.6-7.2) mg/dL Troponin I < 0.050 (0.000-0.056) ng/mL Departure - Departure Time of Disposition: 09:45 Disposition: Home, Self-Care 01 Condition: Good Clinical Impression: Acute gout - Discharge Information Referrals: PCP,None [Primary Care Provider] - Forms: ED Department Discharge Additional Instructions: The following information is given to patients seen in the emergency department who are being discharged to home. This information is to outline your options for follow-up care. We provide all patients seen in our emergency department with a follow-up referral. The need for follow-up, as well as the timing and circumstances, are variable depending upon the specifics of your emergency department visit. If you don't have a primary care physician on staff, we will provide you with a referral. We always advise you to contact your personal physician following an emergency department visit to inform them of the circumstance of the visit and for follow-up with them and/or the need for any referrals to a consulting specialist. The emergency department will also refer you to a specialist when appropriate. This referral assures that you have the opportunity for follow-up care with a specialist. All of these measure are taken in an effort to provide you with optimal care, which includes your follow-up. Under all circumstances we always encourage you to contact your private physician who remains a resource for coordinating your care. When calling for follow-up care, please make the office aware that this follow-up is from your recent emergency room visit. If for any reason you are refused follow-up, please contact the [facility] emergency department at and asked to speak to the emergency department charge nurse. - My Orders Last 24 Hours: My Active Orders 10/12/17 08:54 Hand Comp Min 3V Rt [CR] Stat - Assessment/Plan Last 24 Hours: My Active Orders 10/12/17 08:54 Hand Comp Min 3V Rt [CR] Stat
[2017-10-12] MEDS ORDERED: Morphine 4 MG/ML Syringe IVPUSH ONE (09:46)
--- NOTE | 2017-10-12 09:52 | CR ---
Right hand History: Pain Comparison: None. Findings: There is degenerative arthropathy at the interphalangeal joint of the thumb. There is degen erative arthropathy at the carpal phalangeal joints globally with erosive findings present at the hea d of the third metacarpal. There is minor arthropathy at the radiocarpal joint at the greater multang ular and navicular space and at the first carpal metacarpal junction. 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
[2017-10-12 10:00] VITALS: BP 140/86
== END 2017-10-12 09:55 | disposition home or self-care (01) ==
LOC: MW.ED 08:12
DX: M10.9 Gout, unspecified (principal); I10 Essential (primary) hypertension; E11.9 Type 2 diabetes mellitus without complications; J44.9 Chronic obstructive pulmonary disease, unspecified; F17.210 Nicotine dependence, cigarettes, uncomplicated; Z79.899 Other long term (current) drug therapy; Z79.84 Long term (current) use of oral hypoglycemic drugs
CPT/HCPCS: 36415; 73130-26-RT; 73130-RT; 84484; 84550; 85025; 99283